=== PATIENT | male | born 1975 | race Caucasian/White ===

== ENCOUNTER 2018-07-23 14:27 | Emergency (ER) | payer BC ==
[2018-07-23] MEDS ORDERED: DIPH/PERTUSS(ACELL)/TETANUS VAC/PF 0.5 ML SYR (>=10YO) IM ONE ×2 (16:25→20:00)
[2018-07-23] MEDS ORDERED: LORAZEPAM 1 MG TABLET PO ONE (16:25)
--- NOTE | 2018-07-23 16:25 | ER Document Report ---
ED Medical Screen (RME) - General Chief Complaint: Laceration Stated Complaint: LACERATION,FINGER Time Seen by Provider: 07/23/18 16:24 Mode of Arrival: Ambulatory Information source: Patient Notes: 43-year-old male presents to the emergency room with injury to the thumb via a table saw. Unknown last tetanus shot. TRAVEL OUTSIDE OF THE [place] IN LAST 30 DAYS: No - Related Data Allergies/Adverse Reactions: No Known Allergies Allergy (Verified 07/23/18 14:28) Past Medical History - Social History Chew tobacco use (# tins/day): No Frequency of alcohol use: None Drug Abuse: None Renal/ Medical History: Denies: Hx Peritoneal Dialysis Physical Exam - Vital signs Vitals: Temp Pulse Resp BP Pulse Ox 97.9 F 66 16 128/88 H 97 07/23/18 14:34 07/23/18 14:34 07/23/18 14:34 07/23/18 14:34 07/23/18 14:34 Course - Vital Signs Vital signs: Temp Pulse Resp BP Pulse Ox 97.9 F 66 18 128/88 H 97 07/23/18 14:34 07/23/18 14:34 07/23/18 16:08 07/23/18 14:34 07/23/18 14:34
--- NOTE | 2018-07-23 16:46 | RADIOLOGY REPORT (SQ) ---
EXAM DESCRIPTION: FINGER RIGHT COMPLETED DATE/TIME: 07/23/2018 4:11 pm REASON FOR STUDY: Cut thumb with a table saw. COMPARISON: None. NUMBER OF VIEWS: Three views. TECHNIQUE: AP, lateral, and oblique images acquired of the right thumb. LIMITATIONS: None. FINDINGS: MINERALIZATION: Normal. BONES: No acute fracture or dislocation. No worrisome bone lesions. SOFT TISSUES: There appears to be a laceration to the thumb. OTHER: No other significant finding. IMPRESSION: Laceration. No osseous abnormality. COMMENT: SITE OF TRAUMA/COMPLAINT MARKED/STAMP COMPLETED: Yes TECHNICAL DOCUMENTATION: JOB ID: [id number] [employer] All Rights Reserved Reading location - IP/workstation name: [email or web address]
[2018-07-23] MEDS ORDERED: LIDOCAINE 1% INJ-PF (10 MG/ML) 30 ML SDV INJ ONE (17:41)
[2018-07-23] MEDS ORDERED: BUPIVACAINE HCL 0.5 % INJ/PF 30 ML SDV INJ ONE (17:54)
--- NOTE | 2018-07-23 18:30 | ER Document Report ---
ED General - General Chief Complaint: Laceration Stated Complaint: LACERATION,FINGER Time Seen by Provider: 07/23/18 16:24 Mode of Arrival: Ambulatory TRAVEL OUTSIDE OF THE [place] IN LAST 30 DAYS: No - HPI Context: 43-year-old male presents to the emergency department with laceration on the volar aspect of the distal right thumb. He was using a table saw and got his hand caught but quickly retracted it. He endorses throbbing/pulsating pain and anxiety due to fear of needles. Unknown when his last tetanus shot was. - Related Data Allergies/Adverse Reactions: No Known Allergies Allergy (Verified 07/23/18 14:28) Past Medical History - General Information source: Patient - Social History Smoking Status: Current Every Day Smoker Chew tobacco use (# tins/day): No Frequency of alcohol use: None Drug Abuse: None Family History: Reviewed & Not Pertinent Patient has suicidal ideation: No Patient has homicidal ideation: No Renal/ Medical History: Denies: Hx Peritoneal Dialysis Review of Systems - Review of Systems Constitutional: No symptoms reported EENT: No symptoms reported Cardiovascular: No symptoms reported Respiratory: No symptoms reported Gastrointestinal: No symptoms reported Genitourinary: No symptoms reported Male Genitourinary: No symptoms reported Musculoskeletal: No symptoms reported Skin: See HPI Hematologic/Lymphatic: No symptoms reported Neurological/Psychological: No symptoms reported Physical Exam - Vital signs Vitals: Temp Pulse Resp BP Pulse Ox 97.9 F 66 16 128/88 H 97 07/23/18 14:34 07/23/18 14:34 07/23/18 14:34 07/23/18 14:34 07/23/18 14:34 Interpretation: Normal - General General appearance: Appears well, Alert - HEENT Head: Normocephalic, Atraumatic Eyes: Normal Pupils: PERRL - Respiratory Respiratory status: No respiratory distress Chest status: Nontender Breath sounds: Normal Chest palpation: Normal - Cardiovascular Rhythm: Regular Heart sounds: Normal auscultation Murmur: No - Abdominal Inspection: Normal Distension: No distension Bowel sounds: Normal Tenderness: Nontender Organomegaly: No organomegaly - Back Back: Normal, Nontender - Extremities General upper extremity: Normal inspection, Nontender, Normal color, Normal ROM , Normal temperature General lower extremity: Normal inspection, Nontender, Normal color, Normal ROM , Normal temperature, Normal weight bearing. No: Antoine's sign - Neurological Neuro grossly intact: Yes Cognition: Normal Orientation: AAOx4 [place]ise Coma Scale Eye Opening: Spontaneous [place] Coma Scale Verbal: Oriented Francoise Coma Scale Motor: Obeys Commands Francoise Coma Scale Total: 15 Speech: Normal Motor strength normal: LUE, RUE, LLE, RLE Sensory: Normal - Psychological Associated symptoms: Normal affect, Normal mood - Skin Skin Temperature: Warm Skin Moisture: Dry Skin Color: Normal, [place] Skin irregularity: Laceration - Right volar aspect Course - Vital Signs Vital signs: Temp Pulse Resp BP Pulse Ox 97.9 F 66 18 128/88 H 97 07/23/18 14:34 07/23/18 14:34 07/23/18 16:08 07/23/18 14:34 07/23/18 14:34 Procedures - Laceration/Wound Repair Right Volar Finger Thumb Wound length (cm): 5 Wound's Depth, Shape: Irregular Laceration pre-procedure: Sterile PPE donned Anesthetic type: 1% Lidocaine Volume Anesthetic (mLs): 4 Wound explored: Clean Wound Debrided: Minimal Wound Repaired With: Sutures Suture Size/Type: 4:0, Ethilon Number of Sutures: 5 Layer Closure?: No Post-procedure NV exam normal: Yes Complications: No Discharge - Discharge Clinical Impression: Laceration Condition: Good Disposition: HOME, SELF-CARE Instructions: Antibiotic Ointment Protection ([facility]), Laceration Care ([facility]), Prophylactic Antibiotic ([facility]), Soap Cleansing ([facility]), Tetanus Immunization Given ([facility]) Additional Instructions: You was seen in the emergency department this evening for a laceration of the right thumb. The wound was irregular and you still have some superficial abrasions. Can keep those clean with some antibiotic ointment. Keep the wound clean and dry for 24 hours. After 24 hours you can shower. Your were prescribed a 5-day course of antibiotics for prophylaxis because the wound was on your hand. Take the Keflex 500 mg every 6 hours for 5 days. If you develop a fever, your thumb no signs of infection like warmth, redness, bruising please follow-up with your primary doctor or an urgent care or the emergency room.
[2018-07-23 20:43] VITALS: BP 136/94
== END 2018-07-23 20:20 | disposition home or self-care (01) ==
LOC: ER 14:27
PROC: 0HQFXZZ Repair Right Hand Skin, External Approach (ICD-10-PCS; principal; 2018-07-23)
DX: S61.011A Laceration without foreign body of right thumb without damage to nail, initial encounter (principal); W29.8XXA Contact with other powered hand tools and household machinery, initial encounter; F17.200 Nicotine dependence, unspecified, uncomplicated
CPT/HCPCS: 99283; 73140; 90715; 12002; J3490 ×2